=== PATIENT | female | born 1990 | race Caucasian/White ===

== ENCOUNTER → 2016-06-21 | Outpatient (CLI) | payer BC ==
[~2016-06-21] MED LIST: BUSPAR10 MG PO; EFFEXOR 3737.5 MG/TA PO; EFFEXOR-XR150 MG PO; MULTIVITAMIN1 CTB PO; TRILEPTAL 150M150 MG PO; ZYPREXA2.5 MG PO
[2016-06-21 15:28] LABS: BASO % 0.6 % (0.0-2.0); EOS # 0.1 (0.0-0.7); EOS % 1.3 % (0-4.0); GRAN # 2.6 (1.4-6.5); GRAN % 48.7 % (42.2-75.2); HEMATOCRIT 40.1 % (37.0-47.0); HEMOGLOBIN 13.5 g/dl (12.5-16.0); LYMPH # 2.2 (1.2-3.4); LYMPH % 40.3 % (20.0-51.0); MEAN CELL VOLUME 87 fl (80.0-100.0); MEAN CORPUSCULAR HEMOGLOBIN 29 pg (27.0-31.0); MEAN CORPUSCULAR HGB CONC 34 g/dl (33.0-37.0); MEAN PLATELET VOLUME 10.1 fl (7.4-10.4); MONO # 0.5 (0.1-0.6); MONO % 8.9 % (1.7-9.3); PLATELET COUNT 246 K/mm3 (130-400); RED BLOOD COUNT 4.59 M/mm3 (4.10-5.30); WHITE BLOOD COUNT 5.4 K/mm3 (4.8-10.8)
[2016-06-21 15:51] LABS: ADJUSTED CALCIUM 9.5 mg/dL (8.4-10.2); ALBUMIN 4.1 gm/dL (3.5-5.0); BILIRUBIN,TOTAL 0.6 mg/dL (0.0-1.0); CALCIUM 9.6 mg/dL (8.4-10.2); CREATININE, serum 1.11 mg/dL (0.52-1.25); POTASSIUM 3.9 mmol/L (3.4-5.0); TOTAL PROTEIN 7.7 gm/dL (6.4-8.2)
[2016-06-21 16:21] LABS: THYROID STIMULATING HORMONE 1.25 uIU/mL (0.465-4.680)
== END ==
LOC: COL.LAB 14:57
PROVIDERS: Family Medicine
DX: F50.00 Anorexia nervosa, unspecified (principal); R53.83 Other fatigue; T14.8 Other injury of unspecified body region; X58.XXXA Exposure to other specified factors, initial encounter

== ENCOUNTER → 2019-10-23 | Outpatient (CLI) | payer OTHER | LOC: ZCOL.LAB 15:01 | DX: Z20.828 Contact with and (suspected) exposure to other viral communicable diseases (principal) ==

== ENCOUNTER → 2020-05-28 | Outpatient (CLI) | payer BC | LOC: COL.LAB 11:04 | DX: Z01.89 Encounter for other specified special examinations (principal); Z79.899 Other long term (current) drug therapy ==